=== PATIENT | female | born 1960 | race Hispanic/Latino ===

== ENCOUNTER 2016-11-19 08:39 | Inpatient (IN) | payer OTHER ==
[2016-11-19] MEDS ORDERED: Sodium Chloride 0.9% 1,000 ML IV ONE ×2 (09:03→11:57)
[2016-11-19] MEDS ORDERED: Albuterol 0.083% Inhal Sol (2.5 mg/3 mL) UD INH STA (09:05)
[2016-11-19] MEDS ORDERED: Sodium Chloride 0.9% 1,000 ML ONE ×2 (09:55→12:07)
[2016-11-19 10:01] LABS: BASO # 0.2 K/uL (0.0-0.2); BASO % 1.2 % (0.0-2.0); HEMATOCRIT 38.6 % (34.0-47.0); LYMPH # 0.7 K/uL (1.0-4.3); LYMPH % 4.4 % (20.0-40.0); MEAN CELL VOLUME 90.4 fL (81.0-99.0); MEAN CORPUSCULAR HEMOGLOBIN 30.5 pg (27.0-31.0); MEAN CORPUSCULAR HGB CONC 33.7 g/dL (33.0-37.0); MEAN PLATELET VOLUME 7.7 fL (7.2-11.7); MONO # 0.6 K/uL (0.0-0.8); MONO % 3.6 % (0.0-10.0); PLATELET COUNT 194 K/uL (130-400); RED CELL DISTRIBUTION WIDTH 13.7 % (11.5-14.5)
[2016-11-19] MEDS ORDERED: cefTRIAXone IV 1 gm in Dextros 50 ML IV ONE (10:02)
[2016-11-19 10:10] LABS: CHLORIDE 98 mmol/L (98-107)
[2016-11-19] MEDS ORDERED: cefTRIAXone IV 1 gm in Dextros 50 ML IVPB ONE (10:10)
[2016-11-19 10:11] LABS: POTASSIUM 3.9 mmol/L (3.6-5.2); SODIUM 134 mmol/L (132-148)
[2016-11-19 10:13] LABS: ALB/GLOB RATIO 1.3 (1.0-2.1); AST/SGOT 18 U/L (14-36); BILIRUBIN,TOTAL 1.5 mg/dL (0.2-1.3); BLOOD UREA NITROGEN 17 mg/dL (7-17); CARBON DIOXIDE 26 mmol/L (22-30); GFR AFRICAN-AMERICAN > 60; GLUCOSE,RANDOM 116 mg/dL (65-105); TOTAL PROTEIN 6.9 g/dL (6.3-8.3)
[2016-11-19 10:14] LABS: ALKALINE PHOSPHATASE 68 U/L (38-126); ALT/SGPT 31 U/L (9-52); CALCIUM 8.7 mg/dl (8.6-10.4)
[2016-11-19] MEDS ORDERED: Azithromycin 500mg/250ML NS 500 MG/250 ML BAG IV ONE (10:15)
--- NOTE | 2016-11-19 10:44 | RAD ---
HISTORY: Shortness of breath. COMPARISON: No prior. TECHNIQUE: Chest PA and lateral FINDINGS: LUNGS: Extensive infiltrate lateral segment right lower lobe. PLEURA: No significant pleural effusion identified. No pneumothorax apparent. CARDIOVASCULAR: No radiographic findings to suggest acute or significant cardiovascular disease. OSSEOUS STRUCTURES: No significant abnormalities. VISUALIZED UPPER ABDOMEN: Normal. OTHER FINDINGS: None. IMPRESSION: Right lower lobe infiltrate/pneumonia.
[2016-11-19] MEDS ORDERED: Azithromycin 500mg/250ML NS 500 MG/250 ML BAG IVPB ONE (10:50)
[2016-11-19 11:05] LABS: NEUTROPHIL 88 % (50-75); TOTAL CELLS COUNTED 100
--- NOTE | 2016-11-19 11:34 | C.PDOC ---
History Of Present Illness The patient, a 56 y/o female whose PMHx includes Breast Cancer, presents to the ED for evaluation of fever, cough, shortness of breath which began around 2 days ago. Patient reports a Tmax of 104. She reports taking [id number] medication without relief. Otherwise, she denies nasal congestion, ear pain, sore throat, chest pain, nausea, vomiting, or sick contacts. Time Seen by Provider: 11/19/16 09:02 Chief Complaint (Nursing): Cough, Cold, Congestion History Per: Patient History/Exam Limitations: no limitations Onset/Duration Of Symptoms: Days (2) Current Symptoms Are (Timing): Still Present Sick Contacts (Context): None Associated Symptoms: Fever, Cough. denies: Chills, Sore Throat, Nasal Congestion, Nausea, Vomiting Ear Symptoms: Bilateral: None Additional History Per: Patient Past Medical History Reviewed: Historical Data, Nursing Documentation, Vital Signs Vital Signs: Last Vital Signs Temp 98.2 F 11/20/16 16:12 Pulse 91 H 11/20/16 16:12 Resp 20 11/20/16 16:12 BP 142/87 11/20/16 16:12 Pulse Ox 95 11/20/16 16:12 - Medical History PMH: No Chronic Diseases Surgical History: No Surg Hx Family History: States: Unknown Family Hx - Social History Hx Alcohol Use: No Hx Substance Use: No Review Of Systems Except As Marked, All Systems Reviewed And Found Negative. Constitutional: Positive for: Fever ENT: Negative for: Ear Pain, Nose Congestion, Throat Pain Cardiovascular: Negative for: Chest Pain Respiratory: Positive for: Cough, Shortness of Breath Gastrointestinal: Negative for: Nausea, Vomiting Physical Exam - Physical Exam Appears: Non-toxic, No Acute Distress Skin: Normal Color, Warm, Dry Head: Atraumatic, Normacephalic Eye(s): bilateral: Normal Inspection Ear(s): Bilateral: Normal Nose: Normal, No Discharge Oral Mucosa: Moist Throat: Normal, No Erythema, No Exudate Neck: Supple Chest: Symmetrical, No Deformity, No Tenderness Cardiovascular: Rhythm Regular, No Murmur Respiratory: Decreased Breath Sounds, No Rales, No Rhonchi, No Wheezing Gastrointestinal/Abdominal: Soft, No Tenderness, No Guarding, No Rebound Back: Normal Inspection, No Vertebral Tenderness, No Paraspinal Tenderness Extremity: Normal ROM, Capillary Refill (less than 2 seconds ) Neurological/Psych: Oriented x3, Normal Speech, Normal Cognition Gait: Steady ED Course And Treatment - Laboratory Results Result Diagrams: 11/20/16 07:28 11/19/16 09:56 O2 Sat by Pulse Oximetry: 98 (on RA) Pulse Ox Interpretation: Normal - Other Rad CXR X-Ray: Interpreted by Me, Viewed By Me, Read By Radiologist Interpretation: Accession No. : [id number]. Patient Name / ID : LITZY COREAS / [id number]. Exam Date : 11/19/2016 09:06:02 ( Approved ). Study Comment : Sex / Age : F / 56Y. Creator : Edd Thayer MD. Dictator : Edd Thayer MD. Wire Repairer : Shoe Stainer : Edd Thayer MD. Approver2 : Report Date : 11/19/2016 10:43:11. My Comment : . HISTORY: Shortness of breath. COMPARISON: No prior. TECHNIQUE: Chest PA and lateral. FINDINGS: LUNGS: Extensive infiltrate lateral segment right lower lobe. PLEURA: No significant pleural effusion identified. No pneumothorax apparent. CARDIOVASCULAR: No radiographic findings to suggest acute or significant cardiovascular disease. OSSEOUS STRUCTURES: No significant abnormalities. VISUALIZED UPPER ABDOMEN: Normal. OTHER FINDINGS: None. IMPRESSION: Right lower lobe infiltrate/pneumonia. - CT Scan/US CT Chest Other Rad Studies (CT/US): Interpreted By Me, Read By Radiologist, Radiology Report Reviewed CT/US Interpretation: Accession No. : [id number]. Patient Name / ID : LITZY COREAS / [id number]. Exam Date : 11/19/2016 13:35:05 ( Approved ). Study Comment : Sex / Age : F / 56Y. Creator : Edd Thayer MD. Dictator : Edd Thayer MD. Wire Repairer : Shoe Stainer : Edd Thayer MD. Approver2 : Report Date : 11/19/2016 14:10:04. My Comment : . PROCEDURE: CT Chest with contrast (Pulmonary Angiogram). HISTORY: Worsening cough, fever in-dehydration. COMPARISON: November 19, 2016. Two-view chest. TECHNIQUE: Axial computed tomography images were obtained of the chest in the pulmonary arterial phase of enhancement. Coronal and sagittal reformatted images were created and reviewed. Maximum intensity projection (MIP) reconstructed images in the following planes: Sagittal and coronal. Intravenous contrast dose: 100 cc Visipaque 320. Mean Hounsfield unit values in the main pulmonary artery: 287.45. Radiation dose: Total exam DLP = 539.29 mGy-cm. This CT exam was performed using one or more of the following dose reduction techniques: Automated exposure control, adjustment of the mA and/or kV according to patient size, and/or use of iterative reconstruction technique. FINDINGS: PULMONARY ARTERIES: Unremarkable. No pulmonary embolism. AORTA: No acute findings. No thoracic aortic aneurysm. LUNGS: Multi segment infiltrate right lower lobe consistent with pneumonia. PLEURAL SPACES: Unremarkable. No effusion or pneuomothorax. HEART: Unremarkable. No cardiomegaly. No significant pericardial effusion. LYMPH NODES: No lymphadenopathy. BONES, CHEST WALL: Unremarkable. No fracture or destructive lesion. OTHER FINDINGS: Filling defects in the IVC suggest thrombus. These findings extend into the right atrium. Mass or postoperative changes left breast. No additional history available for. No comparison mammogram or breast ultrasound. IMPRESSION: 1. Right lower lobe pneumonia. 2. Filling defects in the IVC and right atrium likely acute thrombus without evidence of pulmonary embolism. Communication of results: I discussed these findings directly with the physician compounding assistant in the emergency department Rohini Montero PA-C at the time of this interpretation. Progress Note: CT Angio Chest, CXR, EKG, and labs ordered. Patient received Albuterol IH, Motrin PO, Tylenol PO, Zithromax IV, Rocephin IV, and IV Fluids. CXR result indicates right lower lobe infiltrate. CT results reviewed. Case discussed with Dr. Cheatham who ordered Lovenox SC. Case discussed with Dr. Salazar , who requested consult with Dr. Cardenas. Case discussed with Dr. Cardenas, who notes he will evaluate the patient. Disposition - Disposition Disposition: HOSPITALIZED Disposition Time: 18:00 Condition: STABLE - Clinical Impression Clinical Impression: Pneumonia, IVC thrombosis - PA / WASHER MACHINE / Resident Statement MD/DO has reviewed & agrees with the documentation as recorded. - Scribe Statement The provider has reviewed the documentation as recorded by the Scribe (Cata Salazar) All medical record entries made by the Scribe were at my direction and personally dictated by me. I have reviewed the chart and agree that the record accurately reflects my personal performance of the history, physical exam, medical decision making, and the department course for this patient. I have also personally directed, reviewed, and agree with the discharge instructions and disposition.
[2016-11-19] MEDS ORDERED: Iodixanol 320 MG/ML 100 ML BOTTLE IV ONE (12:27)
--- NOTE | 2016-11-19 14:11 | CT ---
PROCEDURE: CT Chest with contrast (Pulmonary Angiogram) HISTORY: Worsening cough, fever in-dehydration. COMPARISON: November 19, 2016. Two-view chest. TECHNIQUE: Axial computed tomography images were obtained of the chest in the pulmonary arterial phase of enhancement. Coronal and sagittal reformatted images were created and reviewed. Maximum intensity projection (MIP) reconstructed images in the following planes: Sagittal and coronal Intravenous contrast dose: 100 cc Visipaque 320 Mean Hounsfield unit values in the main pulmonary artery: 287.45 Radiation dose: Total exam DLP = 539.29 mGy-cm. This CT exam was performed using one or more of the following dose reduction techniques: Automated exposure control, adjustment of the mA and/or kV according to patient size, and/or use of iterative reconstruction technique. FINDINGS: PULMONARY ARTERIES: Unremarkable. No pulmonary embolism. AORTA: No acute findings. No thoracic aortic aneurysm. LUNGS: Multi segment infiltrate right lower lobe consistent with pneumonia. PLEURAL SPACES: Unremarkable. No effusion or pneuomothorax. HEART: Unremarkable. No cardiomegaly. No significant pericardial effusion. LYMPH NODES: No lymphadenopathy. BONES, CHEST WALL: Unremarkable. No fracture or destructive lesion OTHER FINDINGS: Filling defects in the IVC suggest thrombus. These findings extend into the right atrium. Mass or postoperative changes left breast. No additional history available for. No comparison mammogram or breast ultrasound. IMPRESSION: 1. Right lower lobe pneumonia. 2. Filling defects in the IVC and right atrium likely acute thrombus without evidence of pulmonary embolism. Communication of results: I discussed these findings directly with the physician assistant professor of history in the emergency department Rohini Montero PA-C at the time of this interpretation.
[2016-11-19] MEDS ORDERED: Enoxaparin 150 mg Syringe SC STA (14:16)
[2016-11-19] MEDS ORDERED: Enoxaparin 120 mg Syringe SC ONE (14:30)
--- NOTE | 2016-11-19 17:43 | CP.PCM.HP ---
History of Present Illness - History of Present Illness History of Present Illness: 56-year-old female patient with a past medical history of breast cancer, presented to the ED for evaluation of fever, cough, shortness of breath which began around 2 days ago. Patient reports temperature of 104. Patient reports taking noci-yim-kwkeqhj medication without relief. Denies nasal congestion, ear pain, sore throat, chest pain, nausea, vomiting or sick contacts. Present on Admission - Present on Admission Any Indicators Present on Admission: No Past Patient History - Past Social History Smoking Status: Never Smoked - HEMATOLOGICAL/ONCOLOGICAL Hx Blood Disorders: Yes Hx Cancer: Yes (BREAST) - PSYCHIATRIC Hx Substance Use: No - SURGICAL HISTORY Hx Surgeries: Yes Other/Comment: LEFT LUMPECTOMY Meds Home Medications: Home Medication List Medication Instructions Recorded Confirmed Type Amoxicillin/Clavulanate [Augmentin 1 tab PO Q12H #14 tab 11/22/16 Rx 875 MG-125 MG] Rivaroxaban [Xarelto] 15 mg PO Q12H #21 tab 11/22/16 Rx Rivaroxaban [Xarelto] 20 mg PO DAILY #30 tab 11/22/16 Rx Allergies/Adverse Reactions: Allergies Allergy/AdvReac Type Severity Reaction Status Date / Time No Known Allergies Allergy Verified 11/19/16 08:43 Physical Exam - Constitutional Appears: Well - Head Exam Head Exam: ATRAUMATIC, NORMAL INSPECTION, NORMOCEPHALIC - Eye Exam Eye Exam: EOMI, Normal appearance, PERRL Pupil Exam: NORMAL ACCOMODATION, PERRL - ENT Exam ENT Exam: Mucous Membranes Moist, Normal Exam - Neck Exam Neck exam: Positive for: Normal Inspection - Respiratory Exam Respiratory Exam: Decreased Breath Sounds - Cardiovascular Exam Cardiovascular Exam: REGULAR RHYTHM, +S1, +S2 - GI/Abdominal Exam GI & Abdominal Exam: Diminished Bowel Sounds, Soft - Rectal Exam Rectal Exam: Deferred Results - Vital Signs Recent Vital Signs: Last Vital Signs Temp 98.6 F 11/19/16 15:28 Pulse 76 11/19/16 15:28 Resp 18 11/19/16 15:28 BP 110/63 11/19/16 15:28 Pulse Ox 98 11/19/16 17:33 - Labs Result Diagrams: 11/22/16 10:10 11/22/16 08:37 Labs: Laboratory Results - last 24 hr 11/19/16 15:53 Total Creatine Kinase 52 CK-MB (Mass) < 0.22 Troponin I, Quant < 0.0120 Assessment & Plan (1) Breast cancer, left Status: Acute (2) IVC thrombosis Status: Acute (3) Pneumonia Status: Acute - Assessment and Plan (Free Text) Plan: s/p lovenox one dose rocephine zithroax pulm cardio dr truong bernal s=drip maychanged to eliquis or ovenox if dr knight agrees rosette same duoneb anastazole onco rosette as ordered cbc cm tomorrow
[2016-11-19] MEDS ORDERED: Heparin25000 units/250ml 1/2NS 25,000 UNITS/250 ML BAG IV PRN (19:37)
[2016-11-19] MEDS: Azithromycin 500 MG in Sodium Chloride 0.9% 250 ML IVPB SCH (19:58)
[2016-11-19] MEDS: Promethazine/Cod 6.25mg-10mg/5ml Syr UD PO PRN (20:22)
[2016-11-19 20:50] LABS: INR 1.5
[2016-11-19] MEDS: Albuterol-Ipratrop 3 mg / 0.5 (3 ml) UD INH SCH (20:51)
[2016-11-19] MEDS: Enoxaparin 120 mg Syringe SC SCH (22:40)
[2016-11-20] MEDS: Albuterol-Ipratrop 3 mg / 0.5 (3 ml) UD INH SCH ×4 (01:51→19:04)
[2016-11-20 07:42] LABS: BASO % 0.4 % (0.0-2.0); EOS # 0.1 K/uL (0.0-0.7); EOS % 0.7 % (0.0-4.0); HEMATOCRIT 35.6 % (34.0-47.0); LYMPH # 1.4 K/uL (1.0-4.3); LYMPH % 11.9 % (20.0-40.0); MEAN CELL VOLUME 90.9 fL (81.0-99.0); MEAN CORPUSCULAR HEMOGLOBIN 30.8 pg (27.0-31.0); MEAN CORPUSCULAR HGB CONC 33.9 g/dL (33.0-37.0); MEAN PLATELET VOLUME 8.8 fL (7.2-11.7); MONO # 0.4 K/uL (0.0-0.8); MONO % 3.3 % (0.0-10.0); RED CELL DISTRIBUTION WIDTH 13.5 % (11.5-14.5); WHITE BLOOD COUNT 11.4 K/uL (4.8-10.8)
--- NOTE | 2016-11-20 07:51 | CP.PCM.CON ---
History of Present Illness - History of Present Illness History of Present Illness: Called to see 56 by/o female with h/o Breast ca and chest pain . Chest ct showed a largege thrombus extending from IVC into the RA. Pt no sob or abdominal pain Review of Systems - Review of Systems Systems not reviewed;Unavailable: Acuity of Condition - Constitutional Constitutional: absent: Frequent Falls - EENT Eyes: absent: Change in Vision Ears: absent: Decreased Hearing, Ear Discharge Nose/Mouth/Throat: Facial Pain. absent: Nasal Discharge - Cardiovascular Cardiovascular: Chest Pain - Respiratory Respiratory: absent: Dyspnea on Exertion - Gastrointestinal Gastrointestinal: absent: Abdominal Pain, Cramping, Diarrhea - Genitourinary Genitourinary: absent: Difficulty Urinating, Dysuria - Musculoskeletal Musculoskeletal: absent: Arthralgias, Tingling - Integumentary Integumentary: absent: Bleeding Lesions, Lesions - Neurological Neurological: absent: Dizziness - Psychiatric Psychiatric: absent: Anxiety Past Patient History - Past Medical History & Family History Past Medical History?: Yes - Past Social History Smoking Status: Never Smoked - CARDIAC Hx Cardiac Disorders: No - PULMONARY Hx Respiratory Disorders: No - NEUROLOGICAL Hx Neurological Disorder: No - HEENT Hx HEENT Problems: No - RENAL Hx Chronic Kidney Disease: No - ENDOCRINE/METABOLIC Hx Endocrine Disorders: No - HEMATOLOGICAL/ONCOLOGICAL Hx Blood Disorders: Yes Hx Cancer: Yes (BREAST) - INTEGUMENTARY Hx Dermatological Problems: No - MUSCULOSKELETAL/RHEUMATOLOGICAL Hx Falls: Yes - GASTROINTESTINAL Hx Gastrointestinal Disorders: No - GENITOURINARY/GYNECOLOGICAL Hx Genitourinary Disorders: No - PSYCHIATRIC Hx Substance Use: No - SURGICAL HISTORY Hx Surgeries: Yes Other/Comment: LEFT LUMPECTOMY - ANESTHESIA Hx Anesthesia: Yes Hx Anesthesia Reactions: No Meds Home Medications: Home Medication List Medication Instructions Recorded Confirmed Type Amoxicillin/Clavulanate [Augmentin 1 tab PO Q12H #14 tab 11/22/16 Rx 875 MG-125 MG] Rivaroxaban [Xarelto] 15 mg PO Q12H #21 tab 11/22/16 Rx Rivaroxaban [Xarelto] 20 mg PO DAILY #30 tab 11/22/16 Rx Allergies/Adverse Reactions: Allergies Allergy/AdvReac Type Severity Reaction Status Date / Time No Known Allergies Allergy Verified 11/19/16 08:43 - Medications Medications: Current Medications Acetaminophen (Tylenol 325mg Tab) 650 mg PO Q6 PRN PRN Reason: Headache Last Admin: 11/20/16 04:05 Dose: 650 mg Albuterol/Ipratropium (Duoneb 3 Mg/0.5 Mg (3 Ml) Ud) 3 ml INH RQ6 [facility] Last Admin: 11/20/16 01:51 Dose: Not Given Anastrozole (Arimidex 1 Mg Tab) 1 mg PO DAILY [facility] Enoxaparin Sodium (Lovenox) 110 mg SC Q12 [facility] Last Admin: 11/19/16 22:40 Dose: 110 mg Fluoxetine HCl (Prozac) 20 mg PO DAILY [facility] Ceftriaxone Sodium 1 gm/ (Dextrose) 100 mls @ 50 mls/30 min IVPB DAILY [facility] Azithromycin 500 mg/ Sodium (Chloride) 250 mls @ 250 mls/hr IVPB Q24H [facility] Last Admin: 11/19/16 19:58 Dose: 250 mls/hr Pantoprazole Sodium (Protonix Ec Tab) 40 mg PO DAILY [facility] Promethazine HCl/Codeine (Phenergan/Codeine Oral Syrup) 5 ml PO TID PRN PRN Reason: Cough and congestion Last Admin: 11/19/16 20:22 Dose: 5 ml Physical Exam - Constitutional Appears: Well - Head Exam Head Exam: ATRAUMATIC, NORMOCEPHALIC - Eye Exam Eye Exam: Normal appearance - ENT Exam ENT Exam: Mucous Membranes Moist - Respiratory Exam Respiratory Exam: Clear to Auscultation Bilateral. absent: Rhonchi - Cardiovascular Exam Cardiovascular Exam: REGULAR RHYTHM, Systolic Murmur - GI/Abdominal Exam GI & Abdominal Exam: Normal Bowel Sounds, Soft - Exam External exam: NORMAL EXTERNAL EXAM - Extremities Exam Extremities exam: Positive for: normal inspection. Negative for: pedal edema - Neurological Exam Neurological exam: Alert - Psychiatric Exam Psychiatric exam: Normal Affect, Normal Mood Results - Vital Signs Recent Vital Signs: Last Vital Signs Temp 99.6 F 11/19/16 23:35 Pulse 83 11/20/16 00:45 Resp 20 11/19/16 23:35 BP 113/74 11/19/16 23:35 Pulse Ox 95 11/19/16 23:35 - Labs Result Diagrams: 11/22/16 10:10 11/22/16 08:37 Labs: Laboratory Results - last 24 hr 11/19/16 11/19/16 11/19/16 15:53 20:34 23:58 WBC RBC Hgb Hct MCV MCH MCHC RDW Plt Count MPV Neut % (Auto) Lymph % (Auto) [place] % (Auto) Eos % (Auto) Baso % (Auto) Neut # Lymph # [place] # Eos # Baso # PT 17.1 H INR 1.5 APTT 37 H Total Creatine Kinase 52 62 CK-MB (Mass) < 0.22 < 0.22 Troponin I, Quant < 0.0120 < 0.0120 11/20/16 07:28 WBC 11.4 H RBC 3.92 Hgb 12.1 Hct 35.6 MCV 90.9 MCH 30.8 MCHC 33.9 RDW 13.5 Plt Count 185 MPV 8.8 Neut % (Auto) 83.7 H Lymph % (Auto) 11.9 L [place] % (Auto) 3.3 Eos % (Auto) 0.7 Baso % (Auto) 0.4 Neut # 9.6 H Lymph # 1.4 [place] # 0.4 Eos # 0.1 Baso # 0.0 PT INR APTT Total Creatine Kinase CK-MB (Mass) Troponin I, Quant Assessment & Plan (1) IVC thrombosis Assessment and Plan: Will treat ivc thrombosis with protocal for xarelto 21 day followed by 15 mg continue pne[place] care low salt diet Status: Acute (2) Pneumonia Status: Acute
[2016-11-20] MEDS ORDERED: Azithromycin 500 MG in Sodium Chloride 0.9% 250 ML IVPB SCH (10:00)
[2016-11-20] MEDS ORDERED: cefTRIAXone IV 1 gm in Dextros 1 GM in Dextrose 5% In Water 50 ML IVPB SCH (10:00)
[2016-11-20] MEDS: Pantoprazole 40 mg EC Tab PO SCH (10:10)
[2016-11-20] MEDS: Promethazine/Cod 6.25mg-10mg/5ml Syr UD PO PRN ×2 (10:11→22:19)
[2016-11-20] MEDS: Enoxaparin 120 mg Syringe SC SCH ×2 (10:11→22:15)
[2016-11-20] MEDS: cefTRIAXone IV 1 gm in Dextros 50 ML IVPB SCH (11:00)
--- NOTE | 2016-11-20 18:24 | CP.PCM.PN ---
Subjective - Date & Time of Evaluation Date of Evaluation: 11/20/16 Time of Evaluation: 14:00 - Subjective Subjective: clinically same Objective - Vital Signs/Intake and Output Vital Signs (last 24 hours): Temp Pulse Resp BP Pulse Ox 98.2 F 91 H 20 142/87 95 11/20/16 16:12 11/20/16 16:12 11/20/16 16:12 11/20/16 16:12 11/20/16 16:12 Intake and Output: 11/20/16 11/20/16 06:59 18:59 Intake Total 240 480 Balance 240 480 - Medications Medications: Current Medications Acetaminophen (Tylenol 325mg Tab) 650 mg PO Q6 PRN PRN Reason: Headache Last Admin: 11/20/16 10:08 Dose: 650 mg Albuterol/Ipratropium (Duoneb 3 Mg/0.5 Mg (3 Ml) Ud) [address] [facility] Last Admin: 11/20/16 13:47 Dose: 3 ml Anastrozole (Arimidex 1 Mg Tab) [address] [facility] Last Admin: 11/20/16 10:10 Dose: 1 mg Enoxaparin Sodium (Lovenox) 110 mg SC Q12 [facility] Last Admin: 11/20/16 10:11 Dose: 110 mg Fluoxetine HCl (Prozac) [address] [facility] Last Admin: 11/20/16 11:00 Dose: 20 mg Azithromycin 500 mg/ Sodium (Chloride) 250 mls @ 250 mls/hr IVPB Q24H [facility] Last Admin: 11/19/16 19:58 Dose: 250 mls/hr Ceftriaxone Sodium (Rocephin Iv 1 Gm Duplex) 50 mls @ 50 mls/30 min IVPB DAILY [facility] Last Admin: 11/20/16 11:00 Dose: 50 mls/30 min Pantoprazole Sodium (Protonix Ec Tab) [address] [facility] Last Admin: 11/20/16 10:10 Dose: 40 mg Pneumococcal Polyvalent Vaccine (Pneumovax 23 Vaccine) 0.5 ml IM .ONCE ONE Stop: 11/21/16 10:01 Promethazine HCl/Codeine (Phenergan/Codeine Oral Syrup) 5 ml PO TID PRN PRN Reason: Cough and congestion Last Admin: 11/20/16 10:11 Dose: 5 ml - Labs Labs: 11/20/16 07:28 PT 17.1 SECONDS (9.7-12.2) H 11/19/16 20:34 INR 1.5 11/19/16 20:34 APTT 37 SECONDS (21-34) H 11/19/16 20:34 - Constitutional Appears: Well - Head Exam Head Exam: ATRAUMATIC, NORMAL INSPECTION, NORMOCEPHALIC - Eye Exam Eye Exam: EOMI, Normal appearance, PERRL Pupil Exam: NORMAL ACCOMODATION, PERRL - ENT Exam ENT Exam: Mucous Membranes Moist, Normal Exam - Neck Exam Neck Exam: Full ROM, Normal Inspection. absent: Lymphadenopathy - Respiratory Exam Respiratory Exam: Decreased Breath Sounds - Cardiovascular Exam Cardiovascular Exam: REGULAR RHYTHM, +S1, +S2 - GI/Abdominal Exam GI & Abdominal Exam: Soft, Diminished Bowel Sounds - Rectal Exam Rectal Exam: Deferred Assessment and Plan (1) Breast cancer, left Status: Acute (2) IVC thrombosis Status: Acute (3) Pneumonia Status: Acute - Assessment and Plan (Free Text) Plan: Dr Ronald Crocker consult Pneumonia care Continue antibiotics Pneumovax Lovenox DuoNeb
--- NOTE | 2016-11-20 18:54 | CP.PCM.CON ---
History of Present Illness - History of Present Illness History of Present Illness: 56 y/o female with PMHx of Breast Cancer presents with fever, cough, shortness of breath which began around 2 days ago. Patient reports a Tmax of 104. She reports taking [id number] medication without relief. Otherwise, she denies nasal congestion, ear pain, sore throat, chest pain, nausea, vomiting, or sick contacts. Review of Systems - Review of Systems All systems: reviewed and no additional remarkable complaints except (asper HPI) - Constitutional Constitutional: As Per HPI Past Patient History - Past Medical History & Family History Past Medical History?: Yes - Past Social History Smoking Status: Never Smoked - CARDIAC Hx Cardiac Disorders: No - PULMONARY Hx Respiratory Disorders: No - NEUROLOGICAL Hx Neurological Disorder: No - HEENT Hx HEENT Problems: No - RENAL Hx Chronic Kidney Disease: No - ENDOCRINE/METABOLIC Hx Endocrine Disorders: No - HEMATOLOGICAL/ONCOLOGICAL Hx Blood Disorders: Yes Hx Cancer: Yes (BREAST) - INTEGUMENTARY Hx Dermatological Problems: No - MUSCULOSKELETAL/RHEUMATOLOGICAL Hx Falls: Yes - GASTROINTESTINAL Hx Gastrointestinal Disorders: No - GENITOURINARY/GYNECOLOGICAL Hx Genitourinary Disorders: No - PSYCHIATRIC Hx Substance Use: No - SURGICAL HISTORY Hx Surgeries: Yes Other/Comment: LEFT LUMPECTOMY - ANESTHESIA Hx Anesthesia: Yes Hx Anesthesia Reactions: No Meds Home Medications: Home Medication List Medication Instructions Recorded Confirmed Type Amoxicillin/Clavulanate [Augmentin 1 tab PO Q12H #14 tab 11/22/16 Rx 875 MG-125 MG] Rivaroxaban [Xarelto] 15 mg PO Q12H #21 tab 11/22/16 Rx Rivaroxaban [Xarelto] 20 mg PO DAILY #30 tab 11/22/16 Rx Allergies/Adverse Reactions: Allergies Allergy/AdvReac Type Severity Reaction Status Date / Time No Known Allergies Allergy Verified 11/19/16 08:43 - Medications Medications: Current Medications Acetaminophen (Tylenol 325mg Tab) 650 mg PO Q6 PRN PRN Reason: Headache Last Admin: 11/20/16 10:08 Dose: 650 mg Albuterol/Ipratropium (Duoneb 3 Mg/0.5 Mg (3 Ml) Ud) 3 ml INH RQ6 [facility] Last Admin: 11/20/16 13:47 Dose: 3 ml Anastrozole (Arimidex 1 Mg Tab) 1 mg PO DAILY [facility] Last Admin: 11/20/16 10:10 Dose: 1 mg Enoxaparin Sodium (Lovenox) 110 mg SC Q12 [facility] Last Admin: 11/20/16 10:11 Dose: 110 mg Fluoxetine HCl (Prozac) 20 mg PO DAILY [facility] Last Admin: 11/20/16 11:00 Dose: 20 mg Azithromycin 500 mg/ Sodium (Chloride) 250 mls @ 250 mls/hr IVPB Q24H [facility] Last Admin: 11/19/16 19:58 Dose: 250 mls/hr Ceftriaxone Sodium (Rocephin Iv 1 Gm Duplex) 50 mls @ 50 mls/30 min IVPB DAILY [facility] Last Admin: 11/20/16 11:00 Dose: 50 mls/30 min Pantoprazole Sodium (Protonix Ec Tab) 40 mg PO DAILY [facility] Last Admin: 11/20/16 10:10 Dose: 40 mg Pneumococcal Polyvalent Vaccine (Pneumovax 23 Vaccine) 0.5 ml IM .ONCE ONE Stop: 11/21/16 10:01 Promethazine HCl/Codeine (Phenergan/Codeine Oral Syrup) 5 ml PO TID PRN PRN Reason: Cough and congestion Last Admin: 11/20/16 10:11 Dose: 5 ml Physical Exam - Head Exam Head Exam: ATRAUMATIC, NORMAL INSPECTION - ENT Exam ENT Exam: Mucous Membranes Moist - Respiratory Exam Respiratory Exam: Rales, Rhonchi - Cardiovascular Exam Cardiovascular Exam: REGULAR RHYTHM, +S1, +S2 - GI/Abdominal Exam GI & Abdominal Exam: Normal Bowel Sounds, Soft - Extremities Exam Extremities exam: Positive for: normal inspection Results - Vital Signs Recent Vital Signs: Last Vital Signs Temp 98.2 F 11/20/16 16:12 Pulse 91 H 11/20/16 16:12 Resp 20 11/20/16 16:12 BP 142/87 11/20/16 16:12 Pulse Ox 98 11/20/16 18:54 - Labs Result Diagrams: 11/22/16 10:10 11/22/16 08:37 Labs: Laboratory Results - last 24 hr 11/19/16 11/19/16 11/20/16 20:34 23:58 07:11 WBC RBC Hgb Hct MCV MCH MCHC RDW Plt Count MPV Neut % (Auto) Lymph % (Auto) [place] % (Auto) Eos % (Auto) Baso % (Auto) Neut # Lymph # [place] # Eos # Baso # PT 17.1 H INR 1.5 APTT 37 H Total Creatine Kinase 62 85 CK-MB (Mass) < 0.22 < 0.22 Troponin I, Quant < 0.0120 < 0.0120 11/20/16 07:28 WBC 11.4 H RBC 3.92 Hgb 12.1 Hct 35.6 MCV 90.9 MCH 30.8 MCHC 33.9 RDW 13.5 Plt Count 185 MPV 8.8 Neut % (Auto) 83.7 H Lymph % (Auto) 11.9 L [place] % (Auto) 3.3 Eos % (Auto) 0.7 Baso % (Auto) 0.4 Neut # 9.6 H Lymph # 1.4 [place] # 0.4 Eos # 0.1 Baso # 0.0 PT INR APTT Total Creatine Kinase CK-MB (Mass) Troponin I, Quant Assessment & Plan - Assessment and Plan (Free Text) Assessment: RLL Pneumonia Right atrial Thrombus
[2016-11-20] MEDS: Azithromycin 500 MG in Sodium Chloride 0.9% 250 ML IVPB SCH (19:06)
[2016-11-21] MEDS: Albuterol-Ipratrop 3 mg / 0.5 (3 ml) UD INH SCH ×4 (01:02→19:55)
[2016-11-21] MEDS ORDERED: Pneumococcal 23-Valent Vaccine IM ONE (10:00)
--- NOTE | 2016-11-21 10:07 | CP.PCM.PN ---
<Glenys Wood - Last Filed: 11/21/16 10:08> Subjective - Date & Time of Evaluation Date of Evaluation: 11/21/16 Time of Evaluation: 09:00 - Subjective Subjective: Cardiology Progress Note- Dr. Cardenas Service: Patient seen and examined at bedside this AM. Patient reports feeling well this morning. She has not spiked any new fevers and has no SOB. She is unclear of why she is here in the hospital. Patient was re-assures and diagnosis explained. She denies chest pain, headache, fevers, chills. All other 12 pint ROS was negative for acute complaints. Objective - Vital Signs/Intake and Output Vital Signs (last 24 hours): Temp Pulse Resp BP Pulse Ox 98.3 F 102 H 20 144/92 H 100 11/21/16 08:27 11/21/16 08:27 11/21/16 08:27 11/21/16 08:27 11/21/16 08:27 Intake and Output: 11/21/16 11/21/16 06:59 18:59 Intake Total 1050 Balance 1050 - Medications Medications: Current Medications Acetaminophen (Tylenol 325mg Tab) 650 mg PO Q6 PRN PRN Reason: Headache Last Admin: 11/20/16 22:19 Dose: 650 mg Albuterol/Ipratropium (Duoneb 3 Mg/0.5 Mg (3 Ml) Ud) 3 ml INH RQ6 [facility] Last Admin: 11/21/16 07:38 Dose: 3 ml Anastrozole (Arimidex 1 Mg Tab) 1 mg PO DAILY [facility] Last Admin: 11/20/16 10:10 Dose: 1 mg Enoxaparin Sodium (Lovenox) 110 mg SC Q12 [facility] Last Admin: 11/20/16 22:15 Dose: 110 mg Fluoxetine HCl (Prozac) 20 mg PO DAILY [facility] Last Admin: 11/20/16 11:00 Dose: 20 mg Azithromycin 500 mg/ Sodium (Chloride) 250 mls @ 250 mls/hr IVPB Q24H [facility] Last Admin: 11/20/16 19:06 Dose: 250 mls/hr Ceftriaxone Sodium (Rocephin Iv 1 Gm Duplex) 50 mls @ 50 mls/30 min IVPB DAILY [facility] Last Admin: 11/20/16 11:00 Dose: 50 mls/30 min Pantoprazole Sodium (Protonix Ec Tab) 40 mg PO DAILY [facility] Last Admin: 11/20/16 10:10 Dose: 40 mg Promethazine HCl/Codeine (Phenergan/Codeine Oral Syrup) 5 ml PO TID PRN PRN Reason: Cough and congestion Last Admin: 11/20/16 22:19 Dose: 5 ml - Labs Labs: 11/20/16 07:28 PT 17.1 SECONDS (9.7-12.2) H 11/19/16 20:34 INR 1.5 11/19/16 20:34 APTT 37 SECONDS (21-34) H 11/19/16 20:34 - Constitutional Appears: No Acute Distress - Head Exam Head Exam: NORMAL INSPECTION, NORMOCEPHALIC - Eye Exam Eye Exam: EOMI, Normal appearance - ENT Exam ENT Exam: Mucous Membranes Moist - Neck Exam Neck Exam: Full ROM - Respiratory Exam Respiratory Exam: Decreased Breath Sounds, NORMAL BREATHING PATTERN. absent: Rales, Rhonchi, Wheezes - Cardiovascular Exam Cardiovascular Exam: REGULAR RHYTHM, +S1, +S2 - GI/Abdominal Exam GI & Abdominal Exam: Soft. absent: Distended, Tenderness - Extremities Exam Extremities Exam: Pedal Edema. absent: Tenderness - Neurological Exam Neurological Exam: Alert, Oriented x3 - Psychiatric Exam Psychiatric exam: Normal Affect, Normal Mood - Skin Skin Exam: Normal Color, Warm Assessment and Plan (1) IVC thrombosis Assessment & Plan: 56 y/o female with PMHx of breast cancer admitted 11/18/16 for RLL pneumonia and IVC clot extending into R atrium. Continue with therapeutic Lovenox 110 mg SC Q12H. Patient will need anticoagulant to be switched to PO prior to discharge. Continue antibiotics as per primary team for treatment of pneumonia. Heme/Onc on the case 11/19/16 <0.0120 X 4. 11/19/[address] shows RLL pneumonia with thrombus in IVC, extending into R atrium. 11/19/16 EKG Sinus tachycardia 106. Possible Left atrial enlargement. Status: Acute (2) Pneumonia Assessment & Plan: Continue antibiotics as per primary team. Status: Acute (3) Breast cancer, left Assessment & Plan: Heme/Onc on the case Status: Acute <Tracy Cardenas - Last Filed: 01/01/17 03:23> Objective - Vital Signs/Intake and Output Vital Signs (last 24 hours): Temp Pulse Resp BP Pulse Ox 98.1 F 66 18 144/84 95 11/22/16 15:33 11/22/16 15:33 11/22/16 15:33 11/22/16 15:33 11/22/16 15:33 - Labs Labs: 11/22/16 10:10 11/22/16 08:37 PT 17.1 SECONDS (9.7-12.2) H 11/19/16 20:34 INR 1.5 11/19/16 20:34 APTT 37 SECONDS (21-34) H 11/19/16 20:34 Attending/Attestation - Attestation I have personally seen and examined this patient.: Yes I have fully participated in the care of the patient.: Yes I have reviewed all pertinent clinical information, including history, physical exam and plan: Yes Notes (Text): 01/01/17 03:23 a/c with xarelto for ivc thrombosis prob from br ca hypercoagulation
[2016-11-21] MEDS: Enoxaparin 120 mg Syringe SC SCH (10:08)
[2016-11-21] MEDS: Pantoprazole 40 mg EC Tab PO SCH (10:09)
[2016-11-21] MEDS: cefTRIAXone IV 1 gm in Dextros 50 ML IVPB SCH (10:09)
[2016-11-21 12:16] LABS: BASO # 0.1 K/uL (0.0-0.2); BASO % 0.9 % (0.0-2.0); EOS # 0.1 K/uL (0.0-0.7); EOS % 2.5 % (0.0-4.0); HEMATOCRIT 34.6 % (34.0-47.0); LYMPH # 0.7 K/uL (1.0-4.3); LYMPH % 12.3 % (20.0-40.0); MEAN CELL VOLUME 91.4 fL (81.0-99.0); MEAN CORPUSCULAR HEMOGLOBIN 30.6 pg (27.0-31.0); MEAN CORPUSCULAR HGB CONC 33.5 g/dL (33.0-37.0); MEAN PLATELET VOLUME 8.7 fL (7.2-11.7); MONO # 0.3 K/uL (0.0-0.8); MONO % 5.4 % (0.0-10.0); NRBC % 0.1 % (0.0-2.0); RED CELL DISTRIBUTION WIDTH 13.2 % (11.5-14.5); WHITE BLOOD COUNT 5.8 K/uL (4.8-10.8)
[2016-11-21 12:47] LABS: CHLORIDE 103 mmol/L (98-107); SODIUM 138 mmol/L (132-148)
[2016-11-21 12:48] LABS: POTASSIUM 3.2 mmol/L (3.6-5.2)
[2016-11-21 12:50] LABS: ALB/GLOB RATIO 1.2 (1.0-2.1); ALKALINE PHOSPHATASE 72 U/L (38-126); ALT/SGPT 21 U/L (9-52); AST/SGOT 19 U/L (14-36); BILIRUBIN,TOTAL 0.6 mg/dL (0.2-1.3); BLOOD UREA NITROGEN 13 mg/dL (7-17); CARBON DIOXIDE 25 mmol/L (22-30); GFR AFRICAN-AMERICAN > 60; GLUCOSE,RANDOM 133 mg/dL (65-105); TOTAL PROTEIN 6.5 g/dL (6.3-8.3)
[2016-11-21 12:51] LABS: CALCIUM 8.6 mg/dl (8.6-10.4)
[2016-11-21] MEDS ORDERED: Potassium Chloride 20 mEq ER Tab PO STA (13:48)
--- NOTE | 2016-11-21 15:54 | CP.PCM.PN ---
Subjective - Date & Time of Evaluation Date of Evaluation: 11/21/16 Time of Evaluation: 13:20 - Subjective Subjective: clinically same Objective - Vital Signs/Intake and Output Vital Signs (last 24 hours): Temp Pulse Resp BP Pulse Ox 98.9 F 79 18 131/83 95 11/21/16 15:22 11/21/16 15:22 11/21/16 15:22 11/21/16 15:22 11/21/16 15:22 Intake and Output: 11/21/16 11/21/16 06:59 18:59 Intake Total 1050 650 Balance 1050 650 - Medications Medications: Current Medications Acetaminophen (Tylenol 325mg Tab) 650 mg PO Q6 PRN PRN Reason: Headache Last Admin: 11/20/16 22:19 Dose: 650 mg Albuterol/Ipratropium (Duoneb 3 Mg/0.5 Mg (3 Ml) Ud) 3 ml INH RQ6 [facility] Last Admin: 11/21/16 13:37 Dose: 3 ml Anastrozole (Arimidex 1 Mg Tab) 1 mg PO DAILY [facility] Last Admin: 11/21/16 10:08 Dose: 1 mg Enoxaparin Sodium (Lovenox) 110 mg SC Q12 [facility] Last Admin: 11/21/16 10:08 Dose: 110 mg Fluoxetine HCl (Prozac) 20 mg PO DAILY [facility] Last Admin: 11/21/16 10:09 Dose: 20 mg Azithromycin 500 mg/ Sodium (Chloride) 250 mls @ 250 mls/hr IVPB Q24H [facility] Last Admin: 11/20/16 19:06 Dose: 250 mls/hr Ceftriaxone Sodium (Rocephin Iv 1 Gm Duplex) 50 mls @ 50 mls/30 min IVPB DAILY [facility] Last Admin: 11/21/16 10:09 Dose: 50 mls/30 min Pantoprazole Sodium (Protonix Ec Tab) 40 mg PO DAILY [facility] Last Admin: 11/21/16 10:09 Dose: 40 mg Promethazine HCl/Codeine (Phenergan/Codeine Oral Syrup) 5 ml PO TID PRN PRN Reason: Cough and congestion Last Admin: 11/20/16 22:19 Dose: 5 ml - Labs Labs: 11/21/16 12:05 11/21/16 12:05 PT 17.1 SECONDS (9.7-12.2) H 11/19/16 20:34 INR 1.5 11/19/16 20:34 APTT 37 SECONDS (21-34) H 11/19/16 20:34 - Constitutional Appears: Well - Head Exam Head Exam: ATRAUMATIC, NORMAL INSPECTION, NORMOCEPHALIC - Eye Exam Eye Exam: EOMI, Normal appearance, PERRL Pupil Exam: NORMAL ACCOMODATION, PERRL - ENT Exam ENT Exam: Mucous Membranes Moist, Normal Exam - Neck Exam Neck Exam: Full ROM, Normal Inspection. absent: Lymphadenopathy - Respiratory Exam Respiratory Exam: Decreased Breath Sounds - Cardiovascular Exam Cardiovascular Exam: REGULAR RHYTHM, +S1, +S2 - GI/Abdominal Exam GI & Abdominal Exam: Soft, Diminished Bowel Sounds - Rectal Exam Rectal Exam: Deferred Assessment and Plan (1) Breast cancer, left Status: Acute (2) IVC thrombosis Status: Acute (3) Pneumonia Status: Acute - Assessment and Plan (Free Text) Plan: Patient feeling better Chest pain improved Cardio on board Pulmo on board Continue antibiotics
--- NOTE | 2016-11-21 18:32 | CP.PCM.PN ---
Subjective - Date & Time of Evaluation Date of Evaluation: 11/21/16 Time of Evaluation: 18:32 Objective - Vital Signs/Intake and Output Vital Signs (last 24 hours): Temp Pulse Resp BP Pulse Ox 98.9 F 79 18 131/83 95 11/21/16 15:22 11/21/16 15:22 11/21/16 15:22 11/21/16 15:22 11/21/16 15:22 Intake and Output: 11/21/16 11/21/16 06:59 18:59 Intake Total 1050 650 Balance 1050 650 - Medications Medications: Current Medications Acetaminophen (Tylenol 325mg Tab) 650 mg PO Q6 PRN PRN Reason: Headache Last Admin: 11/20/16 22:19 Dose: 650 mg Albuterol/Ipratropium (Duoneb 3 Mg/0.5 Mg (3 Ml) Ud) 3 ml INH RQ6 [facility] Last Admin: 11/21/16 13:37 Dose: 3 ml Anastrozole (Arimidex 1 Mg Tab) 1 mg PO DAILY [facility] Last Admin: 11/21/16 10:08 Dose: 1 mg Fluoxetine HCl (Prozac) 20 mg PO DAILY [facility] Last Admin: 11/21/16 10:09 Dose: 20 mg Azithromycin 500 mg/ Sodium (Chloride) 250 mls @ 250 mls/hr IVPB Q24H [facility] Last Admin: 11/20/16 19:06 Dose: 250 mls/hr Ceftriaxone Sodium (Rocephin Iv 1 Gm Duplex) 50 mls @ 50 mls/30 min IVPB DAILY [facility] Last Admin: 11/21/16 10:09 Dose: 50 mls/30 min Pantoprazole Sodium (Protonix Ec Tab) 40 mg PO DAILY [facility] Last Admin: 11/21/16 10:09 Dose: 40 mg Promethazine HCl/Codeine (Phenergan/Codeine Oral Syrup) 5 ml PO TID PRN PRN Reason: Cough and congestion Last Admin: 11/20/16 22:19 Dose: 5 ml Rivaroxaban (Xarelto) 15 mg PO Q12H [facility] - Labs Labs: 11/21/16 12:05 11/21/16 12:05 PT 17.1 SECONDS (9.7-12.2) H 11/19/16 20:34 INR 1.5 11/19/16 20:34 APTT 37 SECONDS (21-34) H 11/19/16 20:34
[2016-11-21] MEDS ORDERED: Potassium Chloride 10 mEq ER Tab PO STA (21:07)
[2016-11-21] MEDS: Azithromycin 500 MG in Sodium Chloride 0.9% 250 ML IVPB SCH (21:36)
[2016-11-22] MEDS: Promethazine/Cod 6.25mg-10mg/5ml Syr UD PO PRN (00:26)
[2016-11-22] MEDS ORDERED: Potassium Chloride 10 mEq ER Tab PO ONE ×2 (00:30→23:00)
[2016-11-22] MEDS: Albuterol-Ipratrop 3 mg / 0.5 (3 ml) UD INH SCH ×3 (01:55→13:33)
[2016-11-22] MEDS: Pantoprazole 40 mg EC Tab PO SCH (09:15)
[2016-11-22] MEDS: cefTRIAXone IV 1 gm in Dextros 50 ML IVPB SCH (09:16)
[2016-11-22 09:27] LABS: CARCINOEMBRYONIC ANTIGEN 0.9 ng/mL (0-3.0)
--- NOTE | 2016-11-22 09:35 | CP.PCM.PN ---
<Jay Gaxiola - Last Filed: 11/22/16 20:52> Subjective - Date & Time of Evaluation Date of Evaluation: 11/22/16 Time of Evaluation: 10:00 - Subjective Subjective: PGY2 on medicine Dr. Salazar service: Pt seen and examined at bedside this morning. Pt has no complaints, no acute events overnight. Pt to be discharged today with Augmentin 875mg for 7 days. Pt will resume her other home meds. Pt also instructed to use Xarelto 15mg q12 for 3 weeks, then 20mg daily afterwards. Pt urged to follow up with her doctor at [place]. Pt verbalized understanding. Objective - Vital Signs/Intake and Output Vital Signs (last 24 hours): Temp Pulse Resp BP Pulse Ox 97.5 F L 84 20 146/88 98 11/22/16 08:21 11/22/16 08:21 11/22/16 08:21 11/22/16 08:21 11/22/16 08:21 Intake and Output: 11/22/16 11/22/16 06:59 18:59 Intake Total 120 Balance 120 - Medications Medications: Current Medications Acetaminophen (Tylenol 325mg Tab) 650 mg PO Q6 PRN PRN Reason: Headache Last Admin: 11/20/16 22:19 Dose: 650 mg Albuterol/Ipratropium (Duoneb 3 Mg/0.5 Mg (3 Ml) Ud) 3 ml INH RQ6 [facility] Last Admin: 11/22/16 07:58 Dose: 3 ml Anastrozole (Arimidex 1 Mg Tab) 1 mg PO DAILY [facility] Last Admin: 11/22/16 09:23 Dose: 1 mg Fluoxetine HCl (Prozac) 20 mg PO DAILY [facility] Last Admin: 11/22/16 09:15 Dose: 20 mg Azithromycin 500 mg/ Sodium (Chloride) 250 mls @ 250 mls/hr IVPB Q24H [facility] Last Admin: 11/21/16 21:36 Dose: 250 mls/hr Ceftriaxone Sodium (Rocephin Iv 1 Gm Duplex) 50 mls @ 50 mls/30 min IVPB DAILY [facility] Last Admin: 11/22/16 09:16 Dose: 50 mls/30 min Pantoprazole Sodium (Protonix Ec Tab) 40 mg PO DAILY [facility] Last Admin: 11/22/16 09:15 Dose: 40 mg Promethazine HCl/Codeine (Phenergan/Codeine Oral Syrup) 5 ml PO TID PRN PRN Reason: Cough and congestion Last Admin: 11/22/16 00:26 Dose: 5 ml Rivaroxaban (Xarelto) 15 mg PO Q12H [facility] Last Admin: 11/22/16 09:15 Dose: 15 mg - Labs Labs: 11/21/16 12:05 11/21/16 12:05 PT 17.1 SECONDS (9.7-12.2) H 11/19/16 20:34 INR 1.5 11/19/16 20:34 APTT 37 SECONDS (21-34) H 11/19/16 20:34 - Constitutional Appears: Non-toxic, No Acute Distress - Head Exam Head Exam: NORMOCEPHALIC - Eye Exam Eye Exam: Normal appearance Pupil Exam: NORMAL ACCOMODATION - ENT Exam ENT Exam: Mucous Membranes Moist - Respiratory Exam Respiratory Exam: Clear to Ausculation Bilateral, NORMAL BREATHING PATTERN. absent: Rhonchi, Wheezes - Cardiovascular Exam Cardiovascular Exam: REGULAR RHYTHM, +S1, +S2. absent: Gallop, Rubs - GI/Abdominal Exam GI & Abdominal Exam: Soft, Normal Bowel Sounds - Neurological Exam Neurological Exam: Alert, Awake, Oriented x3 - Psychiatric Exam Psychiatric exam: Normal Mood - Skin Skin Exam: Intact <Dwain Salazar S - Last Filed: 01/29/17 15:17> Objective - Vital Signs/Intake and Output Vital Signs (last 24 hours): Temp Pulse Resp BP Pulse Ox 97.5 F L 84 20 146/88 98 11/22/16 08:21 11/22/16 08:21 11/22/16 08:21 11/22/16 08:21 11/22/16 08:21 Intake and Output: 11/22/16 11/22/16 06:59 18:59 Intake Total 120 Balance 120 - Medications Medications: Current Medications Acetaminophen (Tylenol 325mg Tab) 650 mg PO Q6 PRN PRN Reason: Headache Last Admin: 11/20/16 22:19 Dose: 650 mg Albuterol/Ipratropium (Duoneb 3 Mg/0.5 Mg (3 Ml) Ud) 3 ml INH RQ6 [facility] Last Admin: 11/22/16 07:58 Dose: 3 ml Anastrozole (Arimidex 1 Mg Tab) 1 mg PO DAILY [facility] Last Admin: 11/22/16 09:23 Dose: 1 mg Fluoxetine HCl (Prozac) 20 mg PO DAILY [facility] Last Admin: 11/22/16 09:15 Dose: 20 mg Azithromycin 500 mg/ Sodium (Chloride) 250 mls @ 250 mls/hr IVPB Q24H [facility] Last Admin: 11/21/16 21:36 Dose: 250 mls/hr Ceftriaxone Sodium (Rocephin Iv 1 Gm Duplex) 50 mls @ 50 mls/30 min IVPB DAILY [facility] Last Admin: 11/22/16 09:16 Dose: 50 mls/30 min Pantoprazole Sodium (Protonix Ec Tab) 40 mg PO DAILY [facility] Last Admin: 11/22/16 09:15 Dose: 40 mg Promethazine HCl/Codeine (Phenergan/Codeine Oral Syrup) 5 ml PO TID PRN PRN Reason: Cough and congestion Last Admin: 11/22/16 00:26 Dose: 5 ml Rivaroxaban (Xarelto) 15 mg PO Q12H [facility] Last Admin: 11/22/16 09:15 Dose: 15 mg - Labs Labs: 11/22/16 10:10 11/22/16 08:37 PT 17.1 SECONDS (9.7-12.2) H 11/19/16 20:34 INR 1.5 11/19/16 20:34 APTT 37 SECONDS (21-34) H 11/19/16 20:34 Attending/Attestation - Attestation I have personally seen and examined this patient.: Yes I have fully participated in the care of the patient.: Yes I have reviewed all pertinent clinical information, including history, physical exam and plan: Yes Notes (Text): 11/22/16 12:43 pt adv to get xecho and followupct and with cardio also with out pt coti same xarelto 15mg pobid then 20mg po dialy augmentin for 7 days zithromax 5900mg ivpb given for 5 days rosette as ordered
[2016-11-22 10:16] LABS: BASO % 0.5 % (0.0-2.0); EOS # 0.2 K/uL (0.0-0.7); EOS % 4.6 % (0.0-4.0); HEMATOCRIT 36.2 % (34.0-47.0); LYMPH # 1.1 K/uL (1.0-4.3); LYMPH % 20.7 % (20.0-40.0); MEAN CELL VOLUME 91.1 fL (81.0-99.0); MEAN CORPUSCULAR HEMOGLOBIN 30.6 pg (27.0-31.0); MEAN CORPUSCULAR HGB CONC 33.6 g/dL (33.0-37.0); MEAN PLATELET VOLUME 8.5 fL (7.2-11.7); MONO # 0.4 K/uL (0.0-0.8); MONO % 7.2 % (0.0-10.0); NRBC % 0.1 % (0.0-2.0); RED CELL DISTRIBUTION WIDTH 13.5 % (11.5-14.5); WHITE BLOOD COUNT 5.3 K/uL (4.8-10.8)
[2016-11-22 10:17] LABS: CHLORIDE 104 mmol/L (98-107)
[2016-11-22 10:18] LABS: POTASSIUM 4.3 mmol/L (3.6-5.2); SODIUM 138 mmol/L (132-148)
[2016-11-22 10:20] LABS: AST/SGOT 41 U/L (14-36); BILIRUBIN,TOTAL 0.5 mg/dL (0.2-1.3); CARBON DIOXIDE 26 mmol/L (22-30); GFR AFRICAN-AMERICAN > 60
[2016-11-22 10:21] LABS: ALB/GLOB RATIO 1.1 (1.0-2.1); ALKALINE PHOSPHATASE 64 U/L (38-126); ALT/SGPT 45 U/L (9-52); BLOOD UREA NITROGEN 12 mg/dL (7-17); CALCIUM 9.1 mg/dl (8.6-10.4); GLUCOSE,RANDOM 96 mg/dL (65-105); TOTAL PROTEIN 6.8 g/dL (6.3-8.3)
--- NOTE | 2016-11-22 11:11 | CP.PCM.PN ---
<Cristino Suazo - Last Filed: 11/22/16 11:08> Subjective - Date & Time of Evaluation Date of Evaluation: 11/22/16 Time of Evaluation: 07:55 - Subjective Subjective: Cardiology Progress Note Dr. Cardenas Patient seen and examined at bedside. No acute distress, no acute events overnight. Denies new fevers, new chest pain, worsening shortness of breath. She is a little anxious regarding her thrombosis and use of anti-coagulants, but after explanation she appeared reassured. All remaining ROS negative. Objective - Vital Signs/Intake and Output Vital Signs (last 24 hours): Temp Pulse Resp BP Pulse Ox 97.5 F L 84 20 146/88 98 11/22/16 08:21 11/22/16 08:21 11/22/16 08:21 11/22/16 08:21 11/22/16 08:21 Intake and Output: 11/22/16 11/22/16 06:59 18:59 Intake Total 120 Balance 120 - Medications Medications: Current Medications Acetaminophen (Tylenol 325mg Tab) 650 mg PO Q6 PRN PRN Reason: Headache Last Admin: 11/20/16 22:19 Dose: 650 mg Albuterol/Ipratropium (Duoneb 3 Mg/0.5 Mg (3 Ml) Ud) 3 ml INH RQ6 [facility] Last Admin: 11/22/16 07:58 Dose: 3 ml Anastrozole (Arimidex 1 Mg Tab) 1 mg PO DAILY [facility] Last Admin: 11/22/16 09:23 Dose: 1 mg Fluoxetine HCl (Prozac) 20 mg PO DAILY [facility] Last Admin: 11/22/16 09:15 Dose: 20 mg Azithromycin 500 mg/ Sodium (Chloride) 250 mls @ 250 mls/hr IVPB Q24H [facility] Last Admin: 11/21/16 21:36 Dose: 250 mls/hr Ceftriaxone Sodium (Rocephin Iv 1 Gm Duplex) 50 mls @ 50 mls/30 min IVPB DAILY [facility] Last Admin: 11/22/16 09:16 Dose: 50 mls/30 min Pantoprazole Sodium (Protonix Ec Tab) 40 mg PO DAILY [facility] Last Admin: 11/22/16 09:15 Dose: 40 mg Promethazine HCl/Codeine (Phenergan/Codeine Oral Syrup) 5 ml PO TID PRN PRN Reason: Cough and congestion Last Admin: 11/22/16 00:26 Dose: 5 ml Rivaroxaban (Xarelto) 15 mg PO Q12H [facility] Last Admin: 11/22/16 09:15 Dose: 15 mg - Labs Labs: 11/22/16 10:10 11/22/16 08:37 PT 17.1 SECONDS (9.7-12.2) H 11/19/16 20:34 INR 1.5 11/19/16 20:34 APTT 37 SECONDS (21-34) H 11/19/16 20:34 - Constitutional Appears: Well, Non-toxic, No Acute Distress - Head Exam Head Exam: ATRAUMATIC, NORMAL INSPECTION, NORMOCEPHALIC - Eye Exam Eye Exam: EOMI, Normal appearance. absent: Conjunctival injection, Scleral icterus Pupil Exam: absent: Irregular, Unequal - ENT Exam ENT Exam: Mucous Membranes Moist - Neck Exam Neck Exam: Full ROM - Respiratory Exam Respiratory Exam: Clear to Ausculation Bilateral, NORMAL BREATHING PATTERN. absent: Accessory Muscle Use, Chest Wall Tenderness, Decreased Breath Sounds, Rales, Rhonchi, Wheezes - Cardiovascular Exam Cardiovascular Exam: REGULAR RHYTHM, RRR, +S1, +S2. absent: Bradycardia, Tachycardia, Irregular Rhythm, +S4 - GI/Abdominal Exam GI & Abdominal Exam: Soft, Tenderness, Normal Bowel Sounds. absent: Distended, Firm, Rigid, Diminished Bowel Sounds, Hyperactive Bowel Sounds, Hypoactive Bowel Sounds - Extremities Exam Extremities Exam: Normal Capillary Refill, Normal Inspection. absent: Calf Tenderness, Pedal Edema, Tenderness - Neurological Exam Neurological Exam: Alert, Awake - Psychiatric Exam Psychiatric exam: Anxious (mild anxiety about thrombosis and use of anticoagulants, but after explanantion anxiety appeared resolved), Normal Affect , Normal Mood - Skin Skin Exam: Dry, Intact, Normal Color, Warm Assessment and Plan (1) IVC thrombosis Assessment & Plan: Chest CT 11/19/16: Chest CT shows RLL pneumonia with thrombus in IVC, extending into R atrium. EKG 11/19/16: Sinus tachycardia at 106, Possible Left atrial enlargement, Septal infarct (age undetermined), Abnormal ECG Trops negative x4 -2/2 Inherited coagulopathy vs 2/2 Breast Cancer vs unprovoked thrombosis -Converted from therapeutic Lovenox to Xarelto (15mg BID PO x21 days, then 20mg PO daily) -Continue antibiotics as per primary team for treatment of pneumonia. -Hemodynamically stable, Satting well on room air -Heme/Onc on the case Status: Acute - Assessment and Plan (Free Text) Assessment: Case discussed with Dr. Cardenas. <Tracy Cardenas - Last Filed: 01/01/17 03:22> Objective - Vital Signs/Intake and Output Vital Signs (last 24 hours): Temp Pulse Resp BP Pulse Ox 98.1 F 66 18 144/84 95 11/22/16 15:33 11/22/16 15:33 11/22/16 15:33 11/22/16 15:33 11/22/16 15:33 - Labs Labs: 11/22/16 10:10 11/22/16 08:37 PT 17.1 SECONDS (9.7-12.2) H 11/19/16 20:34 INR 1.5 11/19/16 20:34 APTT 37 SECONDS (21-34) H 11/19/16 20:34 Attending/Attestation - Attestation I have personally seen and examined this patient.: Yes I have fully participated in the care of the patient.: Yes I have reviewed all pertinent clinical information, including history, physical exam and plan: Yes Notes (Text): 01/01/17 03:22 continue xarelto regimen for IVC thrombosis
--- NOTE | 2016-11-22 14:56 | CP.PCM.PN ---
Subjective - Date & Time of Evaluation Date of Evaluation: 11/22/16 Time of Evaluation: 11:40 - Subjective Subjective: clinically same Objective - Vital Signs/Intake and Output Vital Signs (last 24 hours): Temp Pulse Resp BP Pulse Ox 97.5 F L 84 20 146/88 98 11/22/16 08:21 11/22/16 08:21 11/22/16 08:21 11/22/16 08:21 11/22/16 08:21 Intake and Output: 11/22/16 11/22/16 06:59 18:59 Intake Total 120 340 Balance 120 340 - Medications Medications: Current Medications Acetaminophen (Tylenol 325mg Tab) 650 mg PO Q6 PRN PRN Reason: Headache Last Admin: 11/20/16 22:19 Dose: 650 mg Albuterol/Ipratropium (Duoneb 3 Mg/0.5 Mg (3 Ml) Ud) 3 ml INH RQ6 NEERAJ Last Admin: 11/22/16 13:33 Dose: 3 ml Anastrozole (Arimidex 1 Mg Tab) 1 mg PO DAILY NEERAJ Last Admin: 11/22/16 09:23 Dose: 1 mg Fluoxetine HCl (Prozac) 20 mg PO DAILY NEERAJ Last Admin: 11/22/16 09:15 Dose: 20 mg Azithromycin 500 mg/ Sodium (Chloride) 250 mls @ 250 mls/hr IVPB Q24H NEERAJ Last Admin: 11/21/16 21:36 Dose: 250 mls/hr Ceftriaxone Sodium (Rocephin Iv 1 Gm Duplex) 50 mls @ 50 mls/30 min IVPB DAILY NEERAJ Last Admin: 11/22/16 09:16 Dose: 50 mls/30 min Pantoprazole Sodium (Protonix Ec Tab) 40 mg PO DAILY NEERAJ Last Admin: 11/22/16 09:15 Dose: 40 mg Promethazine HCl/Codeine (Phenergan/Codeine Oral Syrup) 5 ml PO TID PRN PRN Reason: Cough and congestion Last Admin: 11/22/16 00:26 Dose: 5 ml Rivaroxaban (Xarelto) 15 mg PO Q12H NEERAJ Last Admin: 11/22/16 09:15 Dose: 15 mg - Labs Labs: 11/22/16 10:10 11/22/16 08:37 PT 17.1 SECONDS (9.7-12.2) H 11/19/16 20:34 INR 1.5 11/19/16 20:34 APTT 37 SECONDS (21-34) H 11/19/16 20:34 - Constitutional Appears: Well - Head Exam Head Exam: ATRAUMATIC, NORMAL INSPECTION, NORMOCEPHALIC - Eye Exam Eye Exam: EOMI, Normal appearance, PERRL Pupil Exam: NORMAL ACCOMODATION, PERRL - ENT Exam ENT Exam: Mucous Membranes Moist, Normal Exam - Neck Exam Neck Exam: Full ROM, Normal Inspection. absent: Lymphadenopathy - Respiratory Exam Respiratory Exam: Decreased Breath Sounds - Cardiovascular Exam Cardiovascular Exam: REGULAR RHYTHM, +S1, +S2 - GI/Abdominal Exam GI & Abdominal Exam: Soft, Diminished Bowel Sounds - Rectal Exam Rectal Exam: Deferred Assessment and Plan (1) Breast cancer, left Status: Acute (2) IVC thrombosis Status: Acute (3) Pneumonia Status: Acute - Assessment and Plan (Free Text) Plan: Patient feeling better Plan discharge Continue home medications Augmentin Xarelto Follow-up with PMD in 1 week Come to emergency room if symptoms recurs
--- NOTE | 2016-11-22 15:00 | CP.PCM.PN ---
Subjective - Date & Time of Evaluation Date of Evaluation: 11/22/16 Time of Evaluation: 15:00 Objective - Vital Signs/Intake and Output Vital Signs (last 24 hours): Temp Pulse Resp BP Pulse Ox 97.5 F L 84 20 146/88 98 11/22/16 08:21 11/22/16 08:21 11/22/16 08:21 11/22/16 08:21 11/22/16 08:21 Intake and Output: 11/22/16 11/22/16 06:59 18:59 Intake Total 120 340 Balance 120 340 - Medications Medications: Current Medications Acetaminophen (Tylenol 325mg Tab) 650 mg PO Q6 PRN PRN Reason: Headache Last Admin: 11/20/16 22:19 Dose: 650 mg Albuterol/Ipratropium (Duoneb 3 Mg/0.5 Mg (3 Ml) Ud) 3 ml INH RQ6 NEERAJ Last Admin: 11/22/16 13:33 Dose: 3 ml Anastrozole (Arimidex 1 Mg Tab) 1 mg PO DAILY [facility] Last Admin: 11/22/16 09:23 Dose: 1 mg Fluoxetine HCl (Prozac) 20 mg PO DAILY NEERAJ Last Admin: 11/22/16 09:15 Dose: 20 mg Azithromycin 500 mg/ Sodium (Chloride) 250 mls @ 250 mls/hr IVPB Q24H NEERAJ Last Admin: 11/21/16 21:36 Dose: 250 mls/hr Ceftriaxone Sodium (Rocephin Iv 1 Gm Duplex) 50 mls @ 50 mls/30 min IVPB DAILY NEERAJ Last Admin: 11/22/16 09:16 Dose: 50 mls/30 min Pantoprazole Sodium (Protonix Ec Tab) 40 mg PO DAILY NEERAJ Last Admin: 11/22/16 09:15 Dose: 40 mg Pneumococcal Polyvalent Vaccine (Pneumovax 23 Vaccine) 0.5 ml IM .ONCE ONE Stop: 11/22/16 16:01 Promethazine HCl/Codeine (Phenergan/Codeine Oral Syrup) 5 ml PO TID PRN PRN Reason: Cough and congestion Last Admin: 11/22/16 00:26 Dose: 5 ml Rivaroxaban (Xarelto) 15 mg PO Q12H [facility] Last Admin: 11/22/16 09:15 Dose: 15 mg - Labs Labs: 11/22/16 10:10 11/22/16 08:37 PT 17.1 SECONDS (9.7-12.2) H 11/19/16 20:34 INR 1.5 11/19/16 20:34 APTT 37 SECONDS (21-34) H 11/19/16 20:34
[2016-11-22 15:36] VITALS: BP 144/84; PULSE 66; RESP 18; TEMP 98.1; O2SAT 95
[2016-11-22] MEDS ORDERED: Pneumococcal 23-Valent Vaccine IM ONE (16:00)
--- NOTE | 2016-11-22 17:23 | CARD ---
APPROVED REPORT EKG Measurement Heart [id number] <Conclusion> Sinus tachycardia Possible Left atrial enlargement Septal infarct, age undetermined Abnormal ECG
== END 2016-11-22 16:05 | disposition home or self-care (01) | DRG 193 ==
LOC: C.ER 08:39 → C.9E 14:16 → C.6T 15:07
PROVIDERS: ADMIT Internal Medicine Nephrology; ATTEND Internal Medicine Nephrology
DX: J18.9 Pneumonia, unspecified organism (principal); I82.220 Acute embolism and thrombosis of inferior vena cava; I51.3 Intracardiac thrombosis, not elsewhere classified; Z85.3 Personal history of malignant neoplasm of breast